=== PATIENT | male | born 1975 | race Caucasian/White ===

== ENCOUNTER 2020-02-26 18:08 | Emergency (ER) | payer BC ==
[~2020-02-26] VITALS: Ht 177.8 cm; Wt 95.5 kg
--- NOTE | 2020-02-26 18:11 | PHYS DOC ---
General Adult EDM: Chief Complaint: HAND PROBLEM HPI: HPI: ".. I was hammering and missed and hit my Lt. hand...".."It is same hand I injuried last week".." It same thumb I injuried before..." I had to have anchor was removed' Patient is a 44 year old male who presents with above hx and complaints crust injury to Lt. hand hammering with his right hand. Patient distal neurovascular is equal to right hand. Does have scar from previous tendon repair on thumb. Patient has a circular abrasion on palmar side of hand. There is swelling. Ring removed from fourth finger. Patient denies any history of recent travel. No specific ill contacts. No history immunosuppression. Tetanus is updated less than 2 years ago. Review of Systems: Review of Systems: Constitutional: Denies fever or chills Eyes: Denies change in visual acuity HENT: Denies nasal congestion or sore throat Respiratory: Denies cough or shortness of breath Cardiovascular: Denies chest pain or edema GI: Denies abdominal pain, nausea, vomiting, bloody stools or diarrhea : Denies dysuria Musculoskeletal: Complains of crush injury to left hand Integument: Denies rash Neurologic: Denies headache, focal weakness or sensory changes Endocrine: Denies polyuria or polydipsia Lymphatic: Denies swollen glands Psychiatric: Denies depression or anxiety Heart Score: Risk Factors: Risk Factors: DM, Current or recent (<one month) smoker, HTN, HLP, family history of CAD, obesity. Risk Scores: Score 0 - 3: 2.5% MACE over next 6 weeks - Discharge Home Score 4 - 6: 20.3% MACE over next 6 weeks - Admit for Clinical Observation Score 7 - 10: 72.7% MACE over next 6 weeks - Early Invasive Strategies Family History: Family History: Noncontributory Current Medications: Current Meds: See nursing for home meds Allergies: Allergies: No known drug allergies Physical Exam: PE: Constitutional: Well developed, well nourished, no acute distress, non-toxic appearance. [] HENT: Normocephalic, atraumatic, bilateral external ears normal, oropharynx moist, no oral exudates, nose normal. [] Eyes: PERRLA, EOMI, conjunctiva normal, no discharge. [] Neck: Normal range of motion, no tenderness, supple, no stridor. [] Cardiovascular:Heart rate regular rhythm, no murmur [] Lungs & Thorax: Bilateral breath sounds equal apex with a few scattered wheezes on auscultation [] Abdomen: Bowel sounds normal, soft, no tenderness, no masses, no pulsatile masses. [] Skin: Warm, dry, no erythema, no rash. [] Back: No tenderness, no CVA tenderness. [] Extremities: No tenderness, no cyanosis, no clubbing, ROM intact, no edema. [] Except findings of crush injury left hand Neurologic: Alert and oriented X 3, normal motor function, normal sensory function, no focal deficits noted. [] Psychologic: Affect anxious , judgement normal, mood normal. [] EKG: EKG: [] Radiology/Procedures: Radiology/Procedures: [][address] [address] IMAGING REPORT Signed PATIENT: WILLIAMS COVARRUBIAS ACCOUNT: [id number] : 1975 LOCATION: ER AGE: 44 SEX: M EXAM STATUS: PRE ER ORD. PHYSICIAN: NACHO MORSE MD REASON: crush injury, laceration on anterior aspect of thumb PROCEDURE: HAND LEFT 3V EXAM: Left hand, 3 views. HISTORY: Crush injury. COMPARISON: None. FINDINGS: 3 views of left hand are obtained. There is no fracture, dislocation or subluxation. There is a suspected metallic screw within the base of the first proximal phalanx. There are few tiny radiodense foreign bodies within the soft tissues along the ulnar aspect of the wrist and distal forearm. The largest of these measures 2 mm. IMPRESSION: 1. No acute osseous finding. 2. Small radiodense foreign bodies along or within the soft tissues of the ulnar aspect of the wrist and distal forearm. Electronically signed by: Lupe Mccallum MD (02/26/2020 6:33 PM) [facility] DICTATED AND SIGNED BY: LUPE MCCALLUM MD DATE: 02/26/20 1833 CC: NACHO MORSE MD ~ Course & Med Decision Making: Course & Med Decision Making Pertinent Labs and Imaging studies reviewed. (See chart for details) Ice, rest, elevation, Tylenol and ibuprofen for pain. Massage area with Polys porin 4 times a day. Follow-up workman comp. For marked pain may take Vicoprofen up to 4 times a day. Return if any concerns. Follow-up primary care. Impression: 1. Crush Injury [] Fred Disclaimer: Fred Disclaimer: This electronic medical record was generated, in whole or in part, using a voice recognition dictation system. Departure Departure: Disposition: 01 HOME/RESIDENCE PRIOR TO ADM Condition: STABLE Scripts Bacitracin/Polymyxin B Sulfate (POLYSPORIN OINTMENT) 28.3 Gm Oint...g. 28.3 GM TP QID for crush injury, #90 MISC Prov: NACHO MORSE MD 02/26/20 Hydrocodone/Ibuprofen (HYDROCODONE-IBUPROFEN 7.5-200 ) 1 Each Tablet 1 TAB PO PRN Q6HRS PRN for PAIN, #30 TAB 0 Refills Prov: NACHO MORSE MD 02/26/20 Justification of Admission: Justification of Admission: Justification of Admission Dx: N/A Dragon Disclaimer This chart was dictated in whole or in part using Voice Recognition software in a busy, high-work load, and often noisy Emergency Department environment. It may contain unintended and wholly unrecognized errors or omissions. NACHO MORSE MD Feb 26, 2020 18:11
[2020-02-26 18:15] VITALS: BP 133/75
--- NOTE | 2020-02-26 18:36 | RAD ---
EXAM: Left hand, 3 views. HISTORY: Crush injury. COMPARISON: None. FINDINGS: 3 views of left hand are obtained. There is no fracture, dislocation or subluxation. There is a suspected metallic screw within the base of the first proximal phalanx. There are few tiny radiodense foreign bodies within the soft tissues along the ulnar aspect of the wrist and distal forearm. The largest of these measures 2 mm. IMPRESSION: 1. No acute osseous finding. 2. Small radiodense foreign bodies along or within the soft tissues of the ulnar aspect of the wrist and distal forearm. Electronically signed by: Lupe Mccallum MD (02/26/2020 6:33 PM) [facility]
[2020-02-26] MEDS ORDERED: HYDR-1179 PO (18:37)
[2020-02-26] MEDS ORDERED: BACI28.34 TP (18:39)
[2020-02-26] MEDS ORDERED: HYDROcodon/IBUPROFEN 7.5/200MG 1 TAB TABLET PO ONE (19:00)
== END 2020-02-26 19:07 | disposition home or self-care (01) ==
LOC: ER 18:08
DX: S67.22XA Crushing injury of left hand, initial encounter (principal); W22.8XXA Striking against or struck by other objects, initial encounter; Y93.89 Activity, other specified; Y92.89 Other specified places as the place of occurrence of the external cause; Y99.8 Other external cause status
CPT/HCPCS: 73130; 99283